=== PATIENT | female | born 1985 | race Hispanic/Latino ===

== ENCOUNTER 2019-06-24 18:09 | Emergency (ER) | payer OTHER, SELFPAY ==
[2019-06-24 18:15] VITALS: BP 132/79; PULSE 90; RESP 15; TEMP 36.8; O2SAT 98; BMI 23.2
--- NOTE | 2019-06-24 18:17 | ED.URI ---
HPI - URI/Sore Throat General Chief Complaint: Upper Respiratory Symptoms Stated Complaint: sick for a week,lost her voice, coughing Time Seen by Provider: 06/24/19 18:13 Source: patient Mode of arrival: Ambulatory Limitations: no limitations History of Present Illness HPI Narrative: 33-year-old female nonsmoker with benign medical history presents with a chief complaint of about 1 week of upper respiratory symptoms including runny nose, sore throat and cough. She admits to nasal congestion but no headache. She has had no fever or chills. She denies any nausea, vomiting or diarrhea. 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 She states that she lost her voice a few days ago MD Complaint: cough, sore throat, rhinorrhea and nasal congestion Onset (ago): day(s) Duration: constant Severity: mild Relieving factors: nothing Exacerbating factors: nothing Description of mucous: watery Able to tolerate fluids by mouth: Yes Associated symptoms: voice changes and rhinorrhea Treatments prior to arrival: acetaminophen, ibuprofen and cold medicine Related Data Allergies Allergy/AdvReac Type Severity Reaction Status Date / Time Tetracyclines Allergy Verified 06/24/19 18:19 Review of Systems Constitutional Constitutional: Denies chills, Denies fatigue, Denies fever(s), Denies frequent falls, Denies lethargy and Denies weakness Eyes Eyes: Denies change in vision, Denies eye discharge, Denies irritation and Denies loss of vision ENT Ears, Nose, Mouth, and Throat: Denies change in voice, Denies dizziness, Reports nasal congestion, Reports nasal discharge, Denies neck pain, Reports sore throat and Denies throat swelling Cardiovascular Cardiovascular: Denies chest pain, Denies irregular heart rhythm, Denies lightheadedness, Denies palpitations, Denies dyspnea, Denies dyspnea on exertion and Denies orthopnea Respiratory Respiratory: Reports cough, Denies dyspnea, Denies dyspnea on exertion and Denies wheezing Gastrointestinal Gastrointestinal: Denies abdominal pain, Denies change in bowel habits, Denies diarrhea, Denies nausea and Denies vomiting Genitourinary Genitourinary: Denies hematuria, Denies flank pain, Denies urinary incontinence and Denies urinary urgency Musculoskeletal Musculoskeletal: Denies back pain, Denies muscle weakness, Denies neck pain, Denies numbness and Denies tingling Integumentary/Breasts Skin/Breast: Denies pruritus, Denies erythema, Denies rash and Denies wounds Neurologic Neurologic: Denies behavioral changes, Denies confusion, Denies dizziness, Denies frequent falls, Denies loss of vision, Denies numbness, Denies tingling and Denies weakness Psychiatric Psychiatric: Denies anxiety, Denies behavioral changes, Denies confusion, Denies depression, Denies homicidal ideation and Denies suicidal ideation Endocrine Endocrine: Denies fatigue, Denies flushing and Denies palpitations Hematologic/Lymphatic Hematologic/Lymphatic: Denies easy bruising Allergic/Immunologic Allergic/Immunologic: Denies urticaria, Denies throat swelling and Denies wheezing Patient History Social History Smoking Status: Unknown if ever smoked Exam Narrative Exam Narrative: GENERAL: [33] year old patient appears stated age. Well-nourished, well-developed patient, in mild distress. HEAD: Atraumatic. Normocephalic. EYES: Pupils equal round and reactive. Extraocular motions intact. No scleral icterus. No injection or drainage. ENT: Clear nasal drainage bilaterally, clear postnasal drip. Nose without bleeding, purulent drainage. Throat without erythema, tonsillar hypertrophy or exudate. Airway patent. NECK: Trachea midline. Non tender CARDIOVASCULAR: Regular rate and rhythm without murmurs, gallops, or rubs. RESPIRATORY: Clear to auscultation. Breath sounds equal bilaterally. No wheezes, rales, or rhonchi. GASTROINTESTINAL: Abdomen soft, non-tender, nondistended. EXTREMITIES: No edema or joint tenderness. BACK: Nontender without deformity or crepitance. No flank tenderness. NEURO: AOx3. SKIN: No rash or erythema of visible areas Initial Vital Signs Initial Vital Signs: Vital Signs Temperature 98.3 F 06/24/19 18:15 Pulse Rate 90 06/24/19 18:15 Respiratory Rate 15 06/24/19 18:15 Blood Pressure 132/79 06/24/19 18:15 Pulse Oximetry 98 06/24/19 18:15 Course Orders Ordered: ED Orders 06/24/19 18:21 Influenza A & B (PCR) Stat 06/24/19 18:41 XR chest 2V Stat Vital Signs Vital signs: Vital Signs - 8 hr 06/24/19 18:15 06/24/19 19:32 Temperature 98.3 F Pulse Rate 90 93 H Respiratory Rate 15 22 Blood Pressure 132/79 100/70 Pulse Oximetry 98 99 MDM - URI/Sore Throat Lab Data Labs: Lab Results 06/24/19 Range/Units 18:21 Influenza A (RT-PCR) Flu a negative (NEGATIVE) Influenza B (RT-PCR) Flu b negative (NEGATIVE) Imaging Data Chest x-ray: Radiologist's impression: Diana Pritchard 33 F [address] [address] XRay Report Signed Patient: Diana Pritchard [facility]#: [id number] : 1985Acct:[id number] Age/Sex: 33 FDate of Service: 06/24/19 Loc: ED Accession Number: [id number] Procedure: XR chest 2V Ordering Provider: Skyler Castellanos D.O. PROCEDURE: XR CHEST 2V INDICATIONS: cough, SOB TECHNIQUE: 2 views of the chest were acquired. COMPARISON: [facility], , CHEST 2 VIEW, 11/22/2017, 16:43. FINDINGS: Surgical changes and devices: None. Lungs and pleura: Lungs are clear. No pleural effusions or pneumothorax. Mediastinum: Mediastinal contours are normal. Heart size is normal. Bones and chest wall: No suspicious bony abnormalities. Soft tissues appear unremarkable. IMPRESSION: 1. No acute cardiopulmonary disease. Dictated by: Andrew Obrien M.D. on 06/24/2019 at 19:00 Approved by: Andrew Obrien M.D. on 06/24/2019 at 19:01 Discharge Plan Departure Patient Disposition: Home Clinical Impression: Viral upper respiratory tract infection Discharge Date/Time: 06/24/19 19:33 Instructions: DI for Viral Upper Respiratory Infection -- Adult Activity Restrictions/Additional Instructions: *You have been diagnosed with [acute viral upper respiratory infection] *What to do: *Take medications as directed: Consider sary-uzx-inssnat cough and cold medications with antihistamines to dry the secretions are likely causing the majority of her symptoms *Follow up with your primary care provider in 2-3 days, call for an appointment. Let them know you were seen in the Emergency Department and that we ask that you be seen in follow up *Return to ER if you should have any new, worsening or concerning symptoms
--- NOTE | 2019-06-24 18:41 | DI.RAD.S_ITS ---
PROCEDURE: XR CHEST 2V INDICATIONS: cough, SOB TECHNIQUE: 2 views of the chest were acquired. COMPARISON: [facility], , CHEST 2 VIEW, 11/22/2017, 16:43. FINDINGS: Surgical changes and devices: None. Lungs and pleura: Lungs are clear. No pleural effusions or pneumothorax. Mediastinum: Mediastinal contours are normal. Heart size is normal. Bones and chest wall: No suspicious bony abnormalities. Soft tissues appear unremarkable. IMPRESSION: 1. No acute cardiopulmonary disease. Dictated by: nAdrew Obrien M.D. on 06/24/2019 at 19:00 Approved by: Andrew Obrien M.D. on 06/24/2019 at 19:01
[2019-06-24 18:58] LABS: Influenza A - CEPHEID Flu A NEGATIVE (NEGATIVE); Influenza B - CEPHEID Flu B NEGATIVE (NEGATIVE)
[2019-06-24 19:32] VITALS: BP 100/70; PULSE 93; RESP 22; O2SAT 99
== END 2019-06-24 19:33 | disposition home or self-care (01) ==
PROVIDERS: Emergency Provider Emergency Medicine
DX: J06.9 Acute upper respiratory infection, unspecified (principal); R05 Cough
CPT/HCPCS: 71046; 87502; 99282; 99283

== ENCOUNTER 2023-04-27 20:03 | Emergency (ER) | payer OTHER, SELFPAY ==
[2023-04-27 20:07] VITALS: BP 106/57; PULSE 73; RESP 16; TEMP 36.8; O2SAT 99; BMI 26.8
--- NOTE | 2023-04-27 20:08 | ED.GENADULT ---
HPI - General Adult General Chief complaint: OB/Uterine Contractions Stated complaint: spotting and cramping Time Seen by Provider: 04/27/23 20:07 History of Present Illness HPI narrative: 37-year-old female is a at about 7 weeks and was referred here by her clinic for evaluation of about 2 weeks of spotting. She has some cramping on occasion both in the suprapubic region and also in her flanks. She is not dizzy nor weak or lightheaded. She denies any runny nose, sore throat or cough. She has no chest pain or shortness of breath. She denies any heavy vaginal bleeding and never so much as saturates a pad. She denies obvious dysuria, frequency or urgency. Related Data Previous Rx's Medication Instructions Recorded cephalexin 500 mg capsule 500 mg PO Q6H 7 days #28 caps 04/27/23 Allergies Allergy/AdvReac Type Severity Reaction Status Date / Time Tetracyclines Allergy Verified 06/24/19 18:19 Review of Systems Review of Systems Narrative: GENERAL: See HPI HEENT: Denies sinus pain, ear pain, sore throat, difficulty swallowing, dizziness. RESPIRATORY: Denies dyspnea, cough, wheezing, hemoptysis, sputum. CARDIOVASCULAR: Denies chest pain, palpitations, orthopnea, edema, GASTROINTESTINAL: See HPI : Denies dysuria, frequency, incontinence, hematuria, urinary retention. MUSCULOSKELETAL: denies weakness, joint pain, or bony pain SKIN: Denies rash, skin lesions, or other NEUROLOGIC: Denies weakness, headache, numbness, change in speech, confusion, seizures, incoordination. PSYCHIATRIC: No concerning psychosocial issues. 12 point review of systems is negative except for those stated above Patient History Social History Smoking Status: Unknown if ever smoked Smoking Status: Unknown if ever smoked alcohol intake frequency: holidays/special occasions only Substance Use Type: does not use Exam Initial Vital Signs Initial Vital Signs: Vital Signs Temperature 98.2 F 04/27/23 20:07 Pulse Rate 73 04/27/23 20:07 Respiratory Rate 16 04/27/23 20:07 Blood Pressure 106/57 L 04/27/23 20:07 Pulse Oximetry 99 04/27/23 20:07 Oxygen Delivery Method Room Air 10/03/23 20:07 Course Orders Ordered: ED Orders 04/27/23 20:31 Urine Culture Stat 04/27/23 20:36 US pelvic complete Stat 04/27/23 20:50 Urine Culture Stat Urine Microscopic Stat 04/27/23 22:15 ABO RH Type Stat Beta HCG, Quant [HCG Quantitative /Beta subunit] Stat Complete Blood Count AUTO DIFF Stat Comprehensive Metabolic Panel Stat Discontinued Medications Cefazolin Sodium (Cephalexin 250 Mg Cap Prepack) 1 bottle MISC SEEINSTR ONE Stop: 04/27/23 22:42 Last Admin: 04/27/23 22:52 Dose: 500 mg Vital Signs Vital signs: Vital Signs - 8 hr 04/27/23 20:07 04/27/23 22:52 Temperature 98.2 F Pulse Rate 73 68 Respiratory Rate 16 18 Blood Pressure 106/57 L 103/56 L Pulse Oximetry 99 97 Oxygen Delivery Method Room Air Room Air Medical Decision Making Lab Data 04/27/23 22:15 04/27/23 22:15 Labs: Lab Results 04/27/23 04/27/23 04/27/23 Range/Units 20:50 22:15 22:15 WBC 9.8 (4.5-11.0) X10^3/uL RBC 4.35 (4.0-5.2) X10^6/uL Hgb 12.4 (12.0-16.0) g/dL Hct 36.4 (36-46) % MCV 83.8 (80-100) fL MCH 28.4 (26-34) PG MCHC 33.9 (30-36) % RDW 14.7 (11.6-14.8) % Plt Count 282 (150-400) X10^3/uL Neut % (Auto) 59.3 (50-75) % Lymph % (Auto) 29.9 (25-40) % Cooper % (Auto) 8.0 (3-14) % Eos % (Auto) 1.4 L (2-4) % Baso % (Auto) 1.4 (0-2) % Neut # (Auto) 5800 (4947-5366) /uL Lymph # (Auto) 2900 (6057-1825) /uL Cooper # (Auto) 800 (0-900) /uL Eos # (Auto) 100 (0-450) /uL Baso # (Auto) 100 (0-100) /uL Sodium 136 L (137-145) mmol/L Potassium 3.8 (3.4-5.1) mmol/L Chloride 104 (98-107) mmol/L Carbon Dioxide 24 (22-32) mmol/L BUN 11 (7-17) mg/dL Creatinine 0.68 (0.52-1.04) mg/dL Estimated GFR > 60 (>60) mL/min BUN/Creatinine Ratio 16.2 (6-22) Glucose 105 H (70-100) mg/dL Calcium 8.8 (8.4-10.2) mg/dL Total Bilirubin 0.4 (0.2-1.3) mg/dL AST 20 (14-36) IU/L ALT 14 (<35) IU/L Alkaline Phosphatase 59 (38-126) U/L Total Protein 7.2 (6.3-8.2) g/dL Albumin 3.9 (3.5-5.0) g/dL Globulin 3.3 (1.7-4.1) g/dL Albumin/Globulin Ratio 1.2 (1.0-2.8) HCG, Quant 267.1 mIU/mL Urine RBC None seen (0-5/HPF) Urine WBC 5-10/hpf H (0-5/HPF) Ur Squamous Epith Cells 5-10 /hpf H (0-5/HPF) Urine Bacteria Occasional (0-1) (None) Ur Culture Indicated? Specimen cultured Blood Type 04/27/23 Range/Units 22:15 WBC (4.5-11.0) X10^3/uL RBC (4.0-5.2) X10^6/uL Hgb (12.0-16.0) g/dL Hct (36-46) % MCV (80-100) fL MCH (26-34) PG MCHC (30-36) % RDW (11.6-14.8) % Plt Count (150-400) X10^3/uL Neut % (Auto) (50-75) % Lymph % (Auto) (25-40) % Cooper % (Auto) (3-14) % Eos % (Auto) (2-4) % Baso % (Auto) (0-2) % Neut # (Auto) (3475-4191) /uL Lymph # (Auto) (7526-2939) /uL Cooper # (Auto) (0-900) /uL Eos # (Auto) (0-450) /uL Baso # (Auto) (0-100) /uL Sodium (137-145) mmol/L Potassium (3.4-5.1) mmol/L Chloride (98-107) mmol/L Carbon Dioxide (22-32) mmol/L BUN (7-17) mg/dL Creatinine (0.52-1.04) mg/dL Estimated GFR (>60) mL/min BUN/Creatinine Ratio (6-22) Glucose (70-100) mg/dL Calcium (8.4-10.2) mg/dL Total Bilirubin (0.2-1.3) mg/dL AST (14-36) IU/L ALT (<35) IU/L Alkaline Phosphatase (38-126) U/L Total Protein (6.3-8.2) g/dL Albumin (3.5-5.0) g/dL Globulin (1.7-4.1) g/dL Albumin/Globulin Ratio (1.0-2.8) HCG, Quant mIU/mL Urine RBC (0-5/HPF) Urine WBC (0-5/HPF) Ur Squamous Epith Cells (0-5/HPF) Urine Bacteria (None) Ur Culture Indicated? Blood Type AB Positive Urine Dip Bedside Urine Glucose Negative Bedside Urine Bilirubin - Negative Bedside Urine Ketone - Negative Urine Specific [place] 1.015 Bedside Urine Occult Blood + Bedside Urine pH 7.0 Bedside Urine Protein - Negative Bedside Urine Urobilinogen - Negative Bedside Urine Nitrite - Negative Bedside Urine Leukocytes +++ 500 Esterase Point of care testing: Urine Dip Bedside Urine Glucose Negative Bedside Urine Bilirubin - Negative Bedside Urine Ketone - Negative Urine Specific [place] 1.015 Bedside Urine Occult Blood + Bedside Urine pH 7.0 Bedside Urine Protein - Negative Bedside Urine Urobilinogen - Negative Bedside Urine Nitrite - Negative Bedside Urine Leukocytes +++ 500 Esterase [facility] Narrative Medical decision making narrative: [37] year old patient presents with known and spotting and cramping for 2 weeks Multiple etiologies for patient's symptoms considered including, but not limited to: [Miscarriage versus ectopic versus other] Prior Charts reviewed in our EMR Primary Historian: patient Labs reviewed and interpreted by myself: Imaging reviewed: Ultrasound with no obvious intrauterine gestational sac Patient's history and physical exam are reassuring. Multiple diagnoses considered as noted above. Today's hCG is only 267 and it was not until her papers have been printed that she was able to pull records from Wednesday which noted an HCG over 8000 which highly suggest that this is a missed miscarriage. This is consistent with an ultrasound demonstrating no evidence of intrauterine . She has no pain, very minimal if any bleeding. She is already established with OB and plans to follow up closely. Additionally her urine shows +500 leuks and she is treated for UTI. No signs of sepsis Patient's symptoms improved over duration of stay with above-stated therapies. Findings and discharge diagnosis discussed with patient/family followed by verbalization of understanding Return precautions discussed with patient/family whom verbalize understanding of diagnosis and plan Discharge Plan Departure Patient Disposition: Home Clinical Impression: UTI (urinary tract infection), Spotting affecting Instructions: DI for Urinary Tract Infection (UTI), DI for -- Discomforts and Remedies Activity Restrictions/Additional Instructions: *You have been diagnosed with [urinary tract infection and spotting. As we discussed your history and physical exam are reassuring. The urine so shows evidence of infection. Your labs are otherwise reassuring. Your beta quantitative HCG is only 267 which is quite low at 7 weeks of . Furthermore the ultrasound does not show evidence of .] *What to do: *Please continue to take your regular medications as directed. [x] New medication prescriptions sent to your pharmacy: [ ] [ ] New medication written as a paper prescription [ ] No new medications given *Please follow up with your primary care provider in 2-3 days, call for an appointment. Let them know you were seen in the Emergency Department and that we ask that you be seen in follow up. We will electronically transmit a record of today's note if your PCP is in our system *If you do not have a primary care provider please contact the [facility] Resource line at [phone]. They will ask some questions about your medical history and help get you set up with a doctor in the community. *Return to Emergency Department if you should have any new, worsening or concerning symptoms, such as [fever greater than 101 F, shaking chills, worsening pain, persistent vomiting or other bothersome symptoms] Prescriptions: New cephalexin 500 mg capsule 500 mg PO Q6H 7 Days Qty: 28 0RF Stand Alone Forms: Patient Portal/API
--- NOTE | 2023-04-27 20:36 | DI.US.S_ITS ---
PROCEDURE: US PELVIC COMPLETE INDICATIONS: SPOTTING TECHNIQUE: Real-time scanning was performed of the pelvic organs, with image documentation. Additional endovaginal scanning was necessary due to incomplete visualization of the adnexal and endometrial structures by transabdominal scanning. COMPARISON: None. FINDINGS: Uterus: Retroverted uterus measuring 7.8 x 4.8 cm. Endometrium is borderline thickened at 17 mm. No evidence of an intrauterine gestational sac. Suspected fibroid is present, in the anterior region measuring 1 cm, intramural. Nabothian cysts are present. Ovaries: Nonenlarged ovaries bilaterally. Other: No pathologic free fluid. IMPRESSION: Reported positive home test, hCG confirmation pending. No intrauterine gestational sac. Borderline thickened endometrium at 17 mm. Recommend imaging and laboratory follow-up. Dictated by: Dwight Singh M.D. on 04/27/2023 at 22:39 Approved by: Dwight Singh M.D. on 04/27/2023 at 22:41
[2023-04-27 21:04] LABS: Bacteria Urine Occasional (0-1); Culture Indicated Urine Specimen Cultured; RBC Urine None Seen (0-5/HPF); Squamous Epithelial Cell Urine 5-10 /HPF (0-5/HPF); WBC Urine 5-10/HPF (0-5/HPF)
[2023-04-27 22:31] LABS: Add Manual Diff / Slide Review NO; Basophils Absolute Auto 100 /uL (0-100); Basophils Percent Auto 1.4 % (0-2); Eosinophils Absolute Auto 100 /uL (0-450); Eosinophils Percent Auto 1.4 % (2-4); Hematocrit 36.4 % (36-46); Hemoglobin 12.4 g/dL (12.0-16.0); Lymphocytes Absolute Auto 2900 /uL (1100-4500); Lymphocytes Percent Auto 29.9 % (25-40); Mean Corpuscular HGB Conc 33.9 % (30-36); Mean Corpuscular Hemoglobin 28.4 PG (26-34); Mean Corpuscular Volume 83.8 fL (80-100); Monocytes Absolute Auto 800 /uL (0-900); Neutrophils Absolute Auto 5800 /uL (1500-7000); Neutrophils Percent Auto 59.3 % (50-75); Platelet Count 282 X10^3/uL (150-400); Red Blood Cell Count 4.35 X10^6/uL (4.0-5.2); Red Cell Distribution Width 14.7 % (11.6-14.8); White Blood Cell Count 9.8 X10^3/uL (4.5-11.0)
[2023-04-27 22:41] LABS: Alanine Aminotransferase 14 IU/L (<35); Albumin 3.9 g/dL (3.5-5.0); Albumin Globulin Ratio 1.2 (1.0-2.8); Alkaline Phosphatase 59 U/L (38-126); Aspartate Aminotransferase 20 IU/L (14-36); BUN Creatinine Ratio 16.2 (6-22); Bilirubin Total 0.4 mg/dL (0.2-1.3); Blood Urea Nitrogen 11 mg/dL (7-17); Calcium 8.8 mg/dL (8.4-10.2); Carbon Dioxide 24 mmol/L (22-32); Chloride 104 mmol/L (98-107); Estimated Glomerular Filt Rate > 60 mL/min (>60); Globulin 3.3 g/dL (1.7-4.1); Glucose 105 mg/dL (70-100); HEMOLYSIS < 15 (0-50); Potassium 3.8 mmol/L (3.4-5.1); Sodium 136 mmol/L (137-145); Total Protein 7.2 g/dL (6.3-8.2)
[2023-04-27 22:52] VITALS: BP 103/56; PULSE 68; RESP 18; O2SAT 97
[2023-04-27] MEDS: cephALEXin 250 MG CAP PREPACK 1 BOTTLE MISC (22:52)
[2023-04-27 22:57] LABS: HCG Quantitative /Beta subunit 267.1 mIU/mL
== END 2023-04-27 23:20 | disposition home or self-care (01) ==
PROVIDERS: Emergency Provider Emergency Medicine
DX: O02.9 Abnormal product of conception, unspecified (principal); O08.83 Urinary tract infection following an ectopic and molar pregnancy; Z3A.01 Less than 8 weeks gestation of pregnancy
CPT/HCPCS: 76830; 76856; 80053; 81003; 81015; 84702; 85025; 86900; 86901; 87077; 87086; 87147; 99282; 99284